=== PATIENT | female | born 1990 | race Caucasian/White ===

== ENCOUNTER 2017-06-07 09:14 | Inpatient (IN) | payer OTHER ==
[~2017-06-07] VITALS: Ht 162.7 cm; Wt 81.3 kg
[2017-07-18] VITALS (48 sets, daily range): BP systolic 117–196; BP diastolic 46–104; PULSE 71–122; TEMP 97.2–98.7
[2017-07-18] MEDS ORDERED: SYNTHROID0.075 MG/T PO (11:54)
[2017-07-18] MEDS ORDERED: CLARITIN 1010 MG/TAB PO (11:55)
[2017-07-18] MEDS ORDERED: PRENATAL MVI (11:55)
[2017-07-18 12:05] LABS: BASO % 0.3 % (0.0-2.0); EOS # 0.1 (0.0-0.7); EOS % 0.8 % (0-4.0); GRAN # 5.3 (1.4-6.5); GRAN % 71.9 % (42.2-75.2); HEMATOCRIT 38.5 % (37.0-47.0); HEMOGLOBIN 12.8 g/dl (12.5-16.0); LYMPH # 1.6 (1.2-3.4); LYMPH % 21.5 % (20.0-51.0); MEAN CELL VOLUME 85 fl (80.0-100.0); MEAN CORPUSCULAR HEMOGLOBIN 28 pg (27.0-31.0); MEAN CORPUSCULAR HGB CONC 33 g/dl (33.0-37.0); MEAN PLATELET VOLUME 10.9 fl (7.4-10.4); MONO # 0.4 (0.1-0.6); PLATELET COUNT 230 K/mm3 (130-400); RED BLOOD COUNT 4.53 M/mm3 (4.10-5.30); REDCELL DISTRIBUTION WIDTH-CV 13.3 % (11.5-14.5)
[2017-07-18 12:19] LABS: ALBUMIN 3.4 gm/dL (3.5-5.0); BILIRUBIN,TOTAL 0.2 mg/dL (0.0-1.0); CALCIUM 8.8 mg/dL (8.4-10.2); CREATININE, serum 0.65 mg/dL (0.52-1.25); POTASSIUM 3.9 mmol/L (3.4-5.0); TOTAL PROTEIN 6.7 gm/dL (6.4-8.2)
[2017-07-19] VITALS (27 sets, daily range): BP systolic 118–159; BP diastolic 62–121; PULSE 85–144; TEMP 97.6–98.6
[2017-07-20 08:58] VITALS: BP 118/75; PULSE 75; TEMP 97.6
[2017-07-20] MEDS ORDERED: PERCOCET 325 MG1 TA2 PO (12:42)
[2017-07-20] MEDS ORDERED: MOTRIN 800800 MG/TAB PO (12:43)
[2017-07-20 16:45] VITALS: BP 145/77; PULSE 84; TEMP 97.9
[2017-07-20 19:30] VITALS: BP 142/89; PULSE 88; TEMP 97.8
[2017-07-21 07:18] VITALS: BP 118/78; PULSE 81
[2017-07-21] MEDS ORDERED: NORMODYNE200 MG PO (09:00)
== END 2017-07-21 18:10 | disposition home or self-care (01) | DRG 766 ==
LOC: LDRO 07-16 09:13 → EDSTATUS 07-16 10:34 → LDRO 07-16 16:53 → LDR 07-18 10:35 → OB 07-18 11:11
PROVIDERS: Obstetrics & Gynecology
PROC: 10D00Z1 Extraction of Products of Conception, Low, Open Approach (ICD-10-PCS; principal; 2017-07-18)
PROC: 3E033VJ Introduction of Other Hormone into Peripheral Vein, Percutaneous Approach (ICD-10-PCS; 2017-07-18)
DX: O36.5930 Maternal care for other known or suspected poor fetal growth, third trimester, not applicable or unspecified (principal); O48.0 Post-term pregnancy; O76 Abnormality in fetal heart rate and rhythm complicating labor and delivery; O99.284 Endocrine, nutritional and metabolic diseases complicating childbirth; E03.9 Hypothyroidism, unspecified; O26.86 Pruritic urticarial papules and plaques of pregnancy (PUPPP); O13.4 Gestational [pregnancy-induced] hypertension without significant proteinuria, complicating childbirth; Z3A.40 40 weeks gestation of pregnancy; Z37.0 Single live birth
CPT/HCPCS: J0171; J0690; J1885; J2175; J2400; J2405; J2590; J2795; J3010; J7120

== ENCOUNTER → 2017-09-21 | Outpatient (REF) ==
[~2017-09-21] MED LIST: CLARITIN 1010 MG/TAB PO; MOTRIN 800800 MG/TAB PO; NORMODYNE200 MG PO; PERCOCET 325 MG1 TA2 PO; PRENATAL MVI; SYNTHROID0.075 MG/T PO
== END ==
LOC: ZLAB.WCH 17:52
DX: Z01.89 Encounter for other specified special examinations (principal)